=== PATIENT | male | born 1945 | race Caucasian/White ===

== ENCOUNTER → 2018-11-11 | Outpatient (CLI) | payer OTHER ==
[~2018-11-11] MED LIST: ACETAMINOPHEN650 M5 PO; ASPIRIN EC81 M1; CINNAMON PLUS1 EACH PO; CIPROFLOXACIN500 M3 PO; CO-ENZYME Q-1010 MG PO; COLACE 100 MG100 MG PO; CRESTOR20 MG PO; FISH OIL + D31 EACH PO; GLIPIZIDE-METF1 EAC2 PO; GLYBURID-METFO1 EAC2 PO; GREEN TEA-70500 MG PO; HYDROCODON-ACE1 EAC7 PO; IBUPROFEN 800800 M1 PO; LEVAQUIN 500 M500 M2 PO; ONE DAILY COMP1 EAC1 PO; ROXICODONE5 M1 PO; VITAMIN D1000 UNI1 PO; VITAMIN D10000 UNIT PO; [UNRECOGNIZED DRUG - OTHER]
== END ==
LOC: M.RAD 11:31
DX: J98.11 Atelectasis (principal); W19.XXXA Unspecified fall, initial encounter

== ENCOUNTER 2019-08-13 18:55 | Emergency (ER) | payer OTHER ==
[~2019-08-13] VITALS: Ht 180.3 cm; Wt 122.5 kg
[~2019-08-13 18:55] MED LIST changes: -GLIPIZIDE-METF1 EAC2 PO; +GLIPIZIDE-METF1 EACH PO
[2019-08-13] MEDS ORDERED: LEVEMIR FL100 UNIT/2 SUBQ (19:20)
[2019-08-13] MEDS ORDERED: JARDIANCE25 MG PO (19:21)
[2019-08-13] MEDS ORDERED: NOVOLOG MI100 UNIT/M SUBQ (19:21)
[2019-08-13] MEDS ORDERED: FISH OIL 1,0001 EAC9 PO (19:22)
[2019-08-13] MEDS ORDERED: CRANBERRY400 MG PO (19:22)
[2019-08-13] MEDS ORDERED: ZESTRIL10 MG PO (19:22)
[2019-08-13] MEDS ORDERED: PLAVIX 75 MG TA75 MG PO (19:22)
[2019-08-13 20:13] LABS: HEMATOCRIT 39.2 % (42.0-52.0); HEMOGLOBIN 13.3 gm/dL (14.0-18.0); MCH 31.7 pg (26.0-34.0); MCHC 33.8 g/dL (28.0-37.0); MCV 93.8 fL (80.0-100.0); NUCLEATED RBCS 0 /100WBC; PLATELET COUNT* 328 thou/uL (150-400); RBC 4.18 mil/uL (4.50-6.00); RDW-CV 15.9 % (10.5-14.5)
[2019-08-13 20:19] LABS: CREATININE 1.3 mg/dL (0.6-1.3); POTASSIUM 4.1 mmol/L (3.5-5.1)
[2019-08-13 20:20] LABS: ALBUMIN 3.9 g/dL (3.4-5.0); TOTAL BILIRUBIN 0.4 mg/dL (<0.1-1.0); TOTAL PROTEIN 7.4 g/dL (6.4-8.2)
[2019-08-13 21:12] LABS: ABSOLUTE BASOPHILS 0.1 thou/uL (0.0-0.2); ABSOLUTE EOSINOPHILS 0.4 thou/uL (0.0-0.7); ABSOLUTE LYMPHOCYTES 2.5 thou/uL (0.8-5.3); ABSOLUTE MONOCYTES 0.6 thou/uL (0.0-1.2); ABSOLUTE NEUTROPHILS 6.4 thou/uL (1.6-8.1); ATYPICAL LYMPHS 3 %; PLATELET ESTIMATE ADEQUATE
[2019-08-13 21:13] LABS: POLYCHROMASIA 1+
[2019-08-13 22:11] VITALS: BP 148/74
== END 2019-08-13 22:13 | disposition home or self-care (01) ==
LOC: M.ERS 18:55
PROVIDERS: Emergency Medicine
DX: L76.21 Postprocedural hemorrhage of skin and subcutaneous tissue following a dermatologic procedure (principal); E11.9 Type 2 diabetes mellitus without complications; E78.5 Hyperlipidemia, unspecified; Z87.891 Personal history of nicotine dependence; Z88.0 Allergy status to penicillin; Z88.2 Allergy status to sulfonamides; Z90.49 Acquired absence of other specified parts of digestive tract; Z79.4 Long term (current) use of insulin